=== PATIENT | male | born 1955 | race Caucasian/White ===

== ENCOUNTER → 2018-10-11 | Outpatient (CLI) | payer MEDICARE, MEDICAID ==
[~2018-10-11] MED LIST: ACE3 PO; ALBU8.5H IH; ALBU8.5H12 IH; ASCO-191 PO; ASPI-1471 PO; ASPI81TA86 PO; BIOT250012 PO; BUDE10.2 INH; BUDE10.25 IH; CALC-1 PO; CELE-1 PO; CHOL200022 PO; DULO30CA35 PO; DULO60CA56 PO; ERYT-109 PO; ESOM40CA42 PO; FAMO20TA28 PO; GAB800PT PO; GABA-1 PO; GABA-490 PO; GABA-507 PO; GABA-549 PO; GUAI400T18 PO; HYDR-385 PO; LACT1CAP6 PO; MELO-205 PO; MELO7.5O3 PO; MILK500C2 PO; MULT1TAB64 PO; NAPR-1043 PO; NAPR220C12 PO; NIAC500T85 PO; OMEG1CAP93 PO; POTA2TAB29 PO; SIME180C40 PO; TRAM-420 PO; TRAM100T8 PO; VITA-175 PO; VITA-197 PO
[2018-10-11 10:27] LABS: PLATELET COUNT, AUTOMATED 221 K/uL (150-450)
[2018-10-11 11:07] LABS: LDL CHOLESTEROL 117 mg/dl
== END ==
LOC: LAB 10:08
PROVIDERS: ATTEND Internal Medicine
DX: J44.9 Chronic obstructive pulmonary disease, unspecified (principal); I10 Essential (primary) hypertension; Z72.0 Tobacco use
CPT/HCPCS: 36415; 81001; 84443; 85025; G0103; 82040; 82247; 82310; 82374; 82435; 82465; 82565; 82947; 83718; 84075; 84132; 84153; 84155; 84295; 84450; 84460; 84478; 84520

== ENCOUNTER 2018-10-27 16:08 | Emergency (ER) | payer MEDICARE, MEDICAID ==
[~2018-10-27 16:08] MED LIST changes: +FLU60SYR36 IM; +FLUT16SP19 NS; -GABA-507 PO; +GABA-535 PO; +GABA-547 PO; +LISI-362 PO
--- NOTE | 2018-10-27 16:12 | ER Report ---
History and Physical Time Seen By MD: 16:11 HPI/ROS CHIEF COMPLAINT: Mid epigastric abdominal pain, nausea, decreased appetite HISTORY OF PRESENT ILLNESS: Patient is a 63-year-old male here with complaints of midepigastric abdominal pain, nausea, decreased appetite 24 hours. Patient denies fevers, chest pain, shortness breath, vomiting, recent illnesses. Abdomen is nondistended with no rebound or guarding at time of evaluation, vital signs stable, patient afebrile REVIEW OF SYSTEMS: Constitutional: No fever, no chills. Eyes: No discharge. ENT: No sore throat. Cardiovascular: No chest pain, no palpitations. Respiratory: No cough, no shortness of breath. Gastrointestinal: + mid epigastric abdominal pain, no vomiting, + nausea, No viridiana ound or guarding Genitourinary: No hematuria. Musculoskeletal: No back pain. Skin: No rashes. Neurological: No headache. Allergies: Coded Allergies: No Known Drug Allergies (Unverified , 01/19/16) Home Meds Active Scripts Metronidazole (METRONIDAZOLE) 500 Mg Tablet, 500 MG PO TID for 7 Days, #21 TAB Prov:BROOKLNY STANFORD DO 10/27/18 Ciprofloxacin Hcl 500 Mg Tab (CIPRO 500 MG TAB) 500 Mg Tablet, 500 MG PO BID for 7 Days, #14 TAB Prov:BROOKLYN STANFORD DO 10/27/18 Ondansetron 4 Mg Odt (ONDANSETRON 4 MG ODT) 4 Mg Tab.rapdis, 4 MG PO ONCE, #20 TAB Prov:BROOKLYN STANFORD DO 10/27/18 Fluticasone Prop 50 Mcg Ns (FLONASE 50 MCG NS) 16 Gm [place].susp, 1 SPRAY NS QDAY, #1 BOT 1 Refill Prov:MEEK VALVERDE MD 10/22/18 Lisinopril (LISINOPRIL) 10 Mg Tablet, 10 MG PO QDAY, #30 TAB 2 Refills Prov:MEEK VALVERDE MD 10/22/18 Gabapentin (GABAPENTIN) 100 Mg Capsule, 100 MG PO TID PRN for pain, #30 CAPSULE Prov:MEEK VALVERDE MD 10/22/18 Budesonide/Formoterol Fumarate (SYMBICORT 80-4.5 MCG INHALER) 10.2 Gm Hfa.aer.ad, 2 PUFF IH BID, #1 INHALER 2 Refills Prov:MEEK VALVERDE MD 10/11/18 Albuterol Sulfate 90 Mcg/Act (PROAIR HFA 90 MCG/ACT) 8.5 Gm Hfa.aer.ad, 2 PUFF IH Q4-6H PRN for DYSPNEA, #1 INHALER 3 Refills Prov:MEEK VALVERDE MD 10/11/18 Reported Medications Aspirin (ASPIR 81) 81 Mg Tablet., 81 MG PO QDAY, TAB 05/31/15 Discontinued Scripts Duloxetine Hcl (CYMBALTA) 30 Mg Capsule., 30 MG PO QDAY, #30 CAP Prov:MEEK VALVERDE MD 10/11/18 Hx Smoking: Yes Smoking Status: Current: Every Day Smoker Hx Substance Use Disorder: Yes Hx Alcohol Use: Yes (RECOVERING ALCOHOLIC) Constitutional Vital Sign - Last 24 Hours 10/27/18 10/27/18 10/27/18 10/27/18 16:13 16:14 16:23 16:30 Temp 97.8 Pulse 95 94 Resp 20 22 B/P (MAP) 160/106 160/106 (124) 130/88 (102) Pulse Ox 91 89 O2 Delivery Room Air 10/27/18 10/27/18 10/27/18 10/27/18 16:38 16:53 17:00 17:08 Pulse 90 87 89 Resp 27 21 16 B/P (MAP) ???/??? (1665) Pulse Ox 87 92 97 10/27/18 10/27/18 10/27/18 10/27/18 17:19 17:23 17:30 17:38 Pulse 88 90 Resp 17 14 B/P (MAP) 120/91 (101) Pulse Ox 96 92 O2 Flow Rate 2.0 10/27/18 10/27/18 10/27/18 10/27/18 17:53 17:58 18:00 18:13 Pulse 83 ??? 85 Resp 11 21 B/P (MAP) ???/??? (1665) Pulse Ox 94 98 10/27/18 10/27/18 10/27/18 10/27/18 18:28 18:30 18:43 18:58 Pulse 85 87 91 Resp 10 22 20 B/P (MAP) 139/96 (110) Pulse Ox 94 94 93 10/27/18 10/27/18 19:00 19:13 Pulse ??? B/P (MAP) 135/97 (110) Physical Exam General Appearance: The patient is alert, has no immediate need for airway protection and no signs of toxicity. NAD Eyes: Pupils equal and round no pallor or injection. ENT, Mouth: Mucous membranes are moist. Respiratory: There are no retractions, lungs are clear to auscultation. Cardiovascular: Regular rate and rhythm. Gastrointestinal: + mid epigastric tenderness Neurological: No focal neuro deficits Skin: Warm and dry, no rashes. Musculoskeletal: Neck is supple non tender. Extremities are nontender, nonswollen and have full range of motion. DIFFERENTIAL DIAGNOSIS: After history and physical exam differential diagnosis was considered for abdominal pain including but not limited to appendicitis, cholecystitis, gastritis and urinary tract infection. Medical Decision Making Data Points Result Diagram: 10/27/18 1615 10/27/18 1615 Laboratory Hematology Test 10/27/18 16:15 Red Blood Count 5.66 M/uL (4.00-5.60) Mean Corpuscular Volume 97.8 fL (80.0-96.0) Mean Corpuscular Hemoglobin 32.1 pg (26.0-33.0) Mean Corpuscular Hemoglobin Concent 32.8 g/dL (32.0-36.0) Red Cell Distribution Width 13.6 % (11.5-14.5) Mean Platelet Volume 8.5 fL (7.2-11.1) Neutrophils (%) (Auto) % (39.4-72.5) Lymphocytes (%) (Auto) % (17.6-49.6) Monocytes (%) (Auto) % (4.1-12.4) Eosinophils (%) (Auto) % (0.4-6.7) Basophils (%) (Auto) % (0.3-1.4) Nucleated RBC Relative Count (auto) /100WBC Neutrophils # (Auto) K/uL (2.0-7.4) Lymphocytes # (Auto) K/uL (1.3-3.6) Monocytes # (Auto) K/uL (0.3-1.0) Eosinophils # (Auto) K/uL (0.0-0.5) Basophils # (Auto) K/uL (0.0-0.1) Nucleated RBC Absolute Count (auto) K/uL Neutrophils % (Manual) 58 % (39.4-72.5) Lymphocytes % (Manual) 32 % (17.6-49.6) Monocytes % (Manual) 8 % (4.1-12.4) Eosinophils % (Manual) 2 % (0.4-6.7) Basophils % (Manual) 0 % (0.3-1.4) Platelet Estimate Normal Erythrocyte Sedimentation Rate 14 mm/HOUR (0-20) Sodium Level 141 mmol/L (137-145) Potassium Level 4.2 mmol/L (3.5-5.0) Chloride Level 102 mmol/L (98-107) Carbon Dioxide Level 32 mmol/L (22-30) Blood Urea Nitrogen 17 mg/dl (9-21) Creatinine 1.00 mg/dl (0.66-1.25) Glomerular Filtration Rate Calc > 60.0 Random Glucose 100 mg/dl (75-110) Calcium Level 9.6 mg/dl (8.4-10.2) Total Bilirubin 0.5 mg/dl (0.2-1.3) Aspartate Amino Transf (AST/SGOT) 23 U/L (0-35) Alanine Aminotransferase (ALT/SGPT) 24 U/L (0-56) Alkaline Phosphatase 79 U/L (0-126) Troponin I < 0.012 ng/ml C-Reactive Protein 0.6 mg/dl (<1.0) Total Protein 7.5 g/dl (6.3-8.2) Albumin 4.1 g/dl (3.5-5.0) Lipase 505 U/L (23-300) Chemistry Test 10/27/18 16:15 White Blood Count 11.1 k/uL (4.5-11.0) Red Blood Count 5.66 M/uL (4.00-5.60) Hemoglobin 18.1 g/dL (14.0-18.0) Hematocrit 55.3 % (42.0-52.0) Mean Corpuscular Volume 97.8 fL (80.0-96.0) Mean Corpuscular Hemoglobin 32.1 pg (26.0-33.0) Mean Corpuscular Hemoglobin Concent 32.8 g/dL (32.0-36.0) Red Cell Distribution Width 13.6 % (11.5-14.5) Platelet Count 186 K/uL (150-450) Mean Platelet Volume 8.5 fL (7.2-11.1) Neutrophils (%) (Auto) % (39.4-72.5) Lymphocytes (%) (Auto) % (17.6-49.6) Monocytes (%) (Auto) % (4.1-12.4) Eosinophils (%) (Auto) % (0.4-6.7) Basophils (%) (Auto) % (0.3-1.4) Nucleated RBC Relative Count (auto) /100WBC Neutrophils # (Auto) K/uL (2.0-7.4) Lymphocytes # (Auto) K/uL (1.3-3.6) Monocytes # (Auto) K/uL (0.3-1.0) Eosinophils # (Auto) K/uL (0.0-0.5) Basophils # (Auto) K/uL (0.0-0.1) Nucleated RBC Absolute Count (auto) K/uL Neutrophils % (Manual) 58 % (39.4-72.5) Lymphocytes % (Manual) 32 % (17.6-49.6) Monocytes % (Manual) 8 % (4.1-12.4) Eosinophils % (Manual) 2 % (0.4-6.7) Basophils % (Manual) 0 % (0.3-1.4) Platelet Estimate Normal Erythrocyte Sedimentation Rate 14 mm/HOUR (0-20) Glomerular Filtration Rate Calc > 60.0 Calcium Level 9.6 mg/dl (8.4-10.2) Total Bilirubin 0.5 mg/dl (0.2-1.3) Aspartate Amino Transf (AST/SGOT) 23 U/L (0-35) Alanine Aminotransferase (ALT/SGPT) 24 U/L (0-56) Alkaline Phosphatase 79 U/L (0-126) Troponin I < 0.012 ng/ml C-Reactive Protein 0.6 mg/dl (<1.0) Total Protein 7.5 g/dl (6.3-8.2) Albumin 4.1 g/dl (3.5-5.0) Lipase 505 U/L (23-300) EKG/Imaging EKG Interpretation Test Reason : CARDIAC Blood Pressure : / mmHG Vent. Rate : 096 BPM Atrial Rate : 096 BPM P-R Int : 154 ms QRS Dur : 096 ms QT Int : 342 ms P-R-T Axes : 063 014 046 degrees QTc Int : 432 ms Normal sinus rhythm Normal ECG When compared with ECG of 22-DEC-2015 09:15, premature ventricular complexes are no longer present Confirmed by Jude Chowdary ([id number]) on 10/27/2018 9:04:05 PM Referred By: Confirmed By:Jude Porter Imaging Location: [facility] - [place] Patient: Ferny Henderson : 1955 Visit/Account:[id number] Date of Sevice: 10/27/2018 2 VIEWS CHEST INDICATION: Chest pain. COMPARISON: 08/04/2015. FINDINGS: Cardiomediastinal silhouette and pulmonary vessels within normal limits. There is no focal infiltrate or lobar consolidation. There is no pneumothorax or pleural effusion. No nodule. Upper abdomen is unremarkable. No acute bony abnormality. IMPRESSION: 1. No acute cardiopulmonary process. EXAMINATION: CT abdomen with IV contrast CT pelvis with IV contrast HISTORY: Pancreatitis. COMPARISON: None. TECHNIQUE: Axial images were taken through the abdomen and pelvis with intravenous contrast. Sagittal and coronal reformatted images are also submitted. CONTRAST: 75 mL of IV Isovue-370 One of the following dose optimization techniques was utilized in the performance of this exam: Automated exposure control; adjustment of the mA a nd/or kV according to the patient's size; or use of an iterative reconstruction technique. Specific details can be referenced in the facility's radiology CT exam operational policy. FINDINGS: Liver/biliary: Negative. Pancreas: The pancreas is mildly atrophic. Spleen: Negative. Adrenal glands: Negative. Kidneys: A few small cysts in the kidneys. Pelvic structures: Negative. Bowel: Anastomotic clips at the rectosigmoid junction moderate colonic fecal content. The appendix appears normal. The duodenum and jejunum have relatively hyperenhancing mccall and there may be mild wall thickening of the duodenum and jejunum. The wall of the hepatic flexure of the colon also appears mildly thicke candace. Peritoneum/retroperitoneum/mesenteries: There is fluid/edema along the duodenum and jejunum and along the hepatic flexure of the colon small volume of free fluid in the pelvis. Mild retroperitoneal edema on the right. Vessels: Moderate mixed plaque of the abdominal aorta and iliac arteries Musculoskeletal/body wall: Small fat-containing umbilical hernia. Advanced disc degenerative changes throughout the lumbar spine and lower thoracic spine. Lymph node assessment: Negative. Lower chest: Negative. IMPRESSION: There appears to be mild wall thickening and relative hyperenhancement of the duodenum and long segment of the jejunum. There is edema/fluid along the segments of thickened appearing bowel. These findings are most suggestive of an enteritis. There also appears to be mild wall thickening of the hepatic flexure of the colon suggesting inflammation of the colon in this region. The pancreas is mildly atrophic. The nearby inflammatory changes appear to be related to the bowel rather than the pancreas. ED Course/Re-evaluation ED Course Patient is a 63-year-old male here with complaints of midepigastric abdominal pain, nausea, decreased appetite for the past 24 hours. Patient is afebrile, hemodynamically stable at time of evaluation. Chest x-ray was unremarkable, troponin was negative. EKG showed no ischemic changes or arrhythmias. Patient was tender on palpation of the midepigastrium. White blood cell count was 11,000. Lipase came back elevated prompting CT imaging of the abdomen and pelvis which was consistent with enteritis of the duodenum and jejunum. Patient was given GI cocktail, Zofran with significant improvement in symptoms. Due to the patient's consolation of symptoms and imaging findings, patient was placed on Ci pro and Flagyl and advised to follow-up with gastroenterology or surgery for endoscopy within the next 24-48 hours. I updated the patient regarding these findings. Return precautions provided. Decision to Disposition Date: Oct 27, 2018 Decision to Disposition Time: 18:52 Depart Departure Latest Vital Signs Vital Signs Date Time Temp Pulse Resp B/P (MAP) Pulse Ox O2 Delivery O2 Flow Rate FiO2 10/27/18 19:13 ??? 10/27/18 19:00 135/97 (110) 10/27/18 18:58 20 93 10/27/18 17:19 2.0 10/27/18 16:13 97.8 Room Air Impression: Primary Impression: Pancreatitis Additional Impression: Nausea Condition: Improved Disposition: HOME OR SELF-CARE Referrals: MEEK VALVERDE MD (PCP) New Scripts Metronidazole (METRONIDAZOLE) 500 Mg Tablet 500 MG PO TID for 7 Days, #21 TAB Prov: BROOKLYN STANFORD DO 10/27/18 Ciprofloxacin Hcl 500 Mg Tab (CIPRO 500 MG TAB) 500 Mg Tablet 500 MG PO BID for 7 Days, #14 TAB Prov: BROOKLYN STANFORD DO 10/27/18 Ondansetron 4 Mg Odt (ONDANSETRON 4 MG ODT) 4 Mg Tab.rapdis 4 MG PO ONCE, #20 TAB Prov: STANFORDBROOKLYN DO 10/27/18 Patient Instructions: Enteritis (ED), Pancreatitis (ED) Additional Instructions: Please drink plenty of water. You may take 1 Zofran every 4-6 hours as needed for nausea and vomiting. Your CT scan found that you have inflammation of the hawk wel, possible enteritis for which she'll need to take Cipro 500 mg twice daily, Flagyl 500 mg 3 times daily for 7 days. You will need to follow-up with either Dr. Carbone or Dr. Bingham in order to have endoscopy visualization of the bowel. Please return promptly if you develop fevers, worsening abdominal pain, inability to keep down food or fluids. Please avoid spicy foods, gastric irritants. Problem Qualifiers NICO STANFORDLAS Mayelin ARROYO Oct 27, 2018 16:12
[2018-10-27] MEDS ORDERED: MAG HYD/AL HYD/SIMETH 30ML UDC PO ONE (16:25)
[2018-10-27] MEDS ORDERED: ONDANSETRON 4 MG/2 ML VIAL IVP ONE (16:25)
[2018-10-27] MEDS ORDERED: LIDOCAINE 2% VISC SLN 15ML UDC PO ONE (16:25)
[2018-10-27 16:59] LABS: PLATELET COUNT, AUTOMATED 186 K/uL (150-450)
--- NOTE | 2018-10-27 17:14 | RADIOLOGY IMAGING REPORT ---
FACILITY: [facility] PATIENT NAME: Ferny Henderson : 1955 MR: [id number] V: [id number] EXAM DATE: ORDERING PHYSICIAN: BROOKLYN STANFORD TECHNOLOGIST: Location: [facility] Patient: Ferny Henderson : 1955 Visit/Account:[id number] Date of Sevice: 10/27/2018 2 VIEWS CHEST INDICATION: Chest pain. COMPARISON: 08/04/2015. FINDINGS: Cardiomediastinal silhouette and pulmonary vessels within normal limits. There is no focal infiltrate or lobar consolidation. There is no pneumothorax or pleural effusion. No nodule. Upper abdomen is unremarkable. No acute bony abnormality. IMPRESSION: 1. No acute cardiopulmonary process. Report Dictated By: Rafy Levy at 10/27/2018 5:08 PM Report E-Signed By: Rafy Levy at 10/27/2018 5:09 PM WSN:[id number]
--- NOTE | 2018-10-27 17:51 | EKG ---
[place] [facility] [place] GASPER WASHBURN : [id number] MR: [id number] V: [id number] EXAM DATE: ORDERING PHYSICIAN: BROOKLYN STANFORD TECHNOLOGIST: MADHU Alfonso Reason : CARDIAC Blood Pressure : / mmHG Vent. Rate : 096 BPM Atrial Rate : 096 BPM P-R Int : 154 ms QRS Dur : 096 ms QT Int : 342 ms P-R-T Axes : 063 014 046 degrees QTc Int : 432 ms Normal sinus rhythm Normal ECG When compared with ECG of 22-DEC-2015 09:15, premature ventricular complexes are no longer present Confirmed by Jude Chowdary ([id number]) on 10/27/2018 9:04:05 PM Referred By: Confirmed By:Jude Porter
[2018-10-27] MEDS ORDERED: IOPAMIDOL 76% 100 ML INFUS BTL 100 ML ONE (18:08)
--- NOTE | 2018-10-27 18:43 | RADIOLOGY IMAGING REPORT ---
[place] [facility] [place] NAME: Ferny Henderson : 1955 MR: [id number] V: [id number] EXAM DATE: ORDERING PHYSICIAN: BROOKLYN STANFORD TECHNOLOGIST: [place] [facility] [place] Patient: Ferny Henderson : 1955 Visit/Account:[id number] Date of Sevice: 10/27/2018 EXAMINATION: CT abdomen with IV contrast CT pelvis with IV contrast HISTORY: Pancreatitis. COMPARISON: None. TECHNIQUE: Axial images were taken through the abdomen and pelvis with intravenous contrast. Sagitt al and coronal reformatted images are also submitted. CONTRAST: 75 mL of IV Isovue-370 One of the following dose optimization techniques was utilized in the performance of this exam: Autom ated exposure control; adjustment of the mA and/or kV according to the patient's size; or use of an i terative reconstruction technique. Specific details can be referenced in the facility's radiology C T exam operational policy. FINDINGS: Liver/biliary: Negative. Pancreas: The pancreas is mildly atrophic. Spleen: Negative. Adrenal glands: Negative. Kidneys: A few small cysts in the kidneys. Pelvic structures: Negative. Bowel: Anastomotic clips at the rectosigmoid junction moderate colonic fecal content. The appendix ap pears normal. The duodenum and jejunum have relatively hyperenhancing mccall and there may be mild wal l thickening of the duodenum and jejunum. The wall of the hepatic flexure of the colon also appears m ildly thickened. Peritoneum/retroperitoneum/mesenteries: There is fluid/edema along the duodenum and jejunum and along the hepatic flexure of the colon small volume of free fluid in the pelvis. Mild retroperitoneal jonathan a on the right. Vessels: Moderate mixed plaque of the abdominal aorta and iliac arteries Musculoskeletal/body wall: Small fat-containing umbilical hernia. Advanced disc degenerative changes throughout the lumbar spine and lower thoracic spine. Lymph node assessment: Negative. Lower chest: Negative. IMPRESSION: There appears to be mild wall thickening and relative hyperenhancement of the duodenum and long segme nt of the jejunum. There is edema/fluid along the segments of thickened appearing bowel. These findin gs are most suggestive of an enteritis. There also appears to be mild wall thickening of the hepatic flexure of the colon suggesting inflammation of the colon in this region. The pancreas is mildly atrophic. The nearby inflammatory changes appear to be related to the bowel ra ther than the pancreas. Report Dictated By: Castro Guerra MD at 10/27/2018 6:21 PM Report E-Signed By: Castro Guerra MD at 10/27/2018 6:39 PM WSN:[id number]
[2018-10-27] MEDS ORDERED: METR500T15 PO (18:50)
[2018-10-27] MEDS ORDERED: ONDA4TAB9 PO (18:50)
[2018-10-27] MEDS ORDERED: CIPR-344 PO (18:50)
[2018-10-27] MEDS ORDERED: CIPROFLOXACIN 500 MG TAB PO ONE (18:55)
[2018-10-27] MEDS ORDERED: METRONIDAZOLE 500 MG TABLET PO ONE (18:55)
[2018-10-27 19:00] VITALS: BP 135/97
== END 2018-10-27 19:28 | disposition home or self-care (01) ==
LOC: ER 16:27
DX: K85.90 Acute pancreatitis without necrosis or infection, unspecified (principal); R11.0 Nausea
CPT/HCPCS: 71046; 74177; 83690; 84484; 85025; 85651; 86140; 96374; 99285; A9270; J2405; Q9967; 82040; 82247; 82310; 82374; 82435; 82565; 82947; 84075; 84132; 84155; 84295; 84450; 84460; 84520

== ENCOUNTER 2018-10-29 01:29 | Emergency (ER) | payer MEDICARE, MEDICAID ==
[~2018-10-29 01:29] MED LIST changes: +CIPR-344 PO; +METR500T15 PO; +ONDA4TAB9 PO
--- NOTE | 2018-10-29 01:32 | ER Report ---
History and Physical Time Seen By MD: 01:32 HPI/ROS CHIEF COMPLAINT: Tongue swelling HISTORY OF PRESENT ILLNESS: 63-year-old male presents ambulatory to the ER complaining of tongue swelling. Patient was recently started on lisinopril. 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 Patient states the tongue swelling is very similar to his previous episode of when he was 1st poisoned when he was in correction REVIEW OF SYSTEMS: Respiratory: No cough, no dyspnea. Cardiovascular: No chest pain, no palpitations. Gastrointestinal: No vomiting, no abdominal pain. Musculoskeletal: No back pain. Allergies: Coded Allergies: lisinopril (Verified Allergy, Intermediate, ANGIOEDEMA, 10/29/18) Home Meds Active Scripts Prednisone 10 Mg Tab (PREDNISONE 10 MG TAB) 10 Mg Tablet, 10 MG PO QDAY for reduce tongue swelling, #6 TAB 2 by mouth daily 2 days then 1 by mouth daily for 2 days Prov:AGATHA MELGAR DO 10/29/18 Metronidazole (METRONIDAZOLE) 500 Mg Tablet, 500 MG PO TID for 7 Days, #21 TAB Prov:BROOKLYN STANFORD DO 10/27/18 Ciprofloxacin Hcl 500 Mg Tab (CIPRO 500 MG TAB) 500 Mg Tablet, 500 MG PO BID for 7 Days, #14 TAB Prov:BROOKLYN STANFORD DO 10/27/18 Ondansetron 4 Mg Odt (ONDANSETRON 4 MG ODT) 4 Mg Tab.rapdis, 4 MG PO ONCE, #20 TAB Prov:BROOKLYN STANFORD DO 10/27/18 Fluticasone Prop 50 Mcg Ns (FLONASE 50 MCG NS) 16 Gm [place].susp, 1 SPRAY NS QDAY, #1 BOT 1 Refill Prov:MEEK VALVERDE MD 10/22/18 Lisinopril (LISINOPRIL) 10 Mg Tablet, 10 MG PO QDAY, #30 TAB 2 Refills Prov:MEEK VALVERDE MD 10/22/18 Gabapentin (GABAPENTIN) 100 Mg Capsule, 100 MG PO TID PRN for pain, #30 CAPSULE Prov:MEEK VALVERDE MD 10/22/18 Budesonide/Formoterol Fumarate (SYMBICORT 80-4.5 MCG INHALER) 10.2 Gm Hfa.aer.ad, 2 PUFF IH BID, #1 INHALER 2 Refills Prov:MEEK VALVERDE MD 10/11/18 Albuterol Sulfate 90 Mcg/Act (PROAIR HFA 90 MCG/ACT) 8.5 Gm Hfa.aer.ad, 2 PUFF IH Q4-6H PRN for DYSPNEA, #1 INHALER 3 Refills Prov:MEEK VALVERDE MD 10/11/18 Reported Medications Aspirin (ASPIR 81) 81 Mg Tablet.dr, 81 MG PO QDAY, TAB 05/31/15 Past Medical/Surgical History Past Medical History Cardiovascular: Reports hx of: hypertension Respiratory: Reports hx of: COPD sleep apnea Gastrointestinal: Reports hx of: Crohn's disease diverticulitis GERD irritable bowel syndrome Musculoskeletal: Reports hx of: back pain neck pain Psychiatric: Reports hx of: anxiety depression Hematology/oncology (M): Denies hx of: prostate cancer Past Surgical History Gastrointestinal: Reports hx of: colectomy (for diverticulitis) other GI surgery (pilonidal cyst) Genitourinary - Male: Reports hx of: other surgery (bladder surgery) Musculoskeletal: Reports hx of: spinal surgery (lumbosacral spine surgery x2 1990s than 2004) Integumentary: Reports hx of: skin cancer removal (shoulders 1968) Reviewed Nurses Notes: Yes Old Medical Records Reviewed: Yes Hx Smoking: Yes Smoking Status: Current: Every Day Smoker Hx Substance Use Disorder: Yes (not recent) Hx Alcohol Use: Yes (RECOVERING ALCOHOLIC) Constitutional Physical Exam General Appearance: The patient is alert, has no immediate need for airway protection and no current signs of toxicity. Vital signs stable, afebrile, pulse ox normal HEENT: Pupils equal and round no injection. TMs normal, oropharynx without redness or exudate. There is enlargement of the left side of the tongue consistent with angioedema Respiratory: Chest is non tender, lungs are clear to auscultation. No wheezing or rails Cardiac: regular rate and rhythm Gastrointestinal: Abdomen is soft and non tender, no masses, bowel sounds normal. Musculoskeletal: Neck: Neck is supple and non tender. Extremities have full range of motion and are non tender. Skin: No rashes or lesions. DIFFERENTIAL DIAGNOSIS: After history and physical exam differential diagnosis was considered for angioedema, allergic reaction, Medical Decision Making ED Course/Re-evaluation Clinical Indication for ER IV: Hydration, IV Access ED Course Patient was admitted to an examination room. H&P was done. The differential diagnoses was considered. Patient with obvious tongue swelling consistent with angioedema. Patient has recently been started on lisinopril. Patient's advised to discontinue the lisinopril. Patient's given steroids, Benadryl, Pepcid and monitored for several hours. He continues to slowly improved. He is discharged home. He is advised to return for any worsening. Patient's advised to follow- up with Dr. Valverde for other medication for his blood pressure. Re-evaluation 10/29/2018 2:41:49 am patient thinks his tongue swelling is reduced. On cli nical examination. He does appear to be down by 25%. We'll continue to monitor for another hour and then likely discharge the patient if he is continuing to improve. 10/29/2018 3:28:22 am . Patient states he feels fine. His speech is clear. On evaluation. His tongue appears slightly larger than it did on last visualization. We'll continue to monitor the patient for any changes. 10/29/2018 4:31:33 am patient reports no change. On visualization his tongue. He does appear slightly smaller than when last visualized. Will proceed with discharge at home at this time on a prednisone taper and Benadryl. Patient's advised to have a low threshold to return for any worsening. Decision to Disposition Date: Oct 29, 2018 Decision to Disposition Time: 04:32 Depart Departure Latest Vital Signs Impression: Primary Impression: Tongue swelling Additional Impressions: Angioedema Enteritis Condition: Improved Disposition: HOME OR SELF-CARE Referrals: MEEK VALVERDE MD (PCP) New Scripts Prednisone 10 Mg Tab (PREDNISONE 10 MG TAB) 10 Mg Tablet 10 MG PO QDAY for reduce tongue swelling, #6 TAB 2 by mouth daily 2 days then 1 by mouth daily for 2 days Prov: AGATHA MELGAR DO 10/29/18 Patient Instructions: Angioedema (ED) Additional Instructions: Do not take anymore Lisinopril. Please listed as an allergy in the future when asked regarding medication allergies Take Benadryl 25 mg 2-3 times per day as needed for hives or swelling Follow-up with your primary care doctor in 2-3 days for recheck of your blood pressure and resuming a blood pressure medication since you cannot take lisinopril any more Have a low threshold to call 911 for any worsening such as difficulty swallowing or breathing Problem Qualifiers Additional Impressions: Angioedema Encounter type: initial encounter Qualified Codes: T78.3XXA - Angioneurotic edema, initial encounter AGATHA MELGAR DO Oct 29, 2018 01:32
[2018-10-29] MEDS ORDERED: FAMOTIDINE(*) 20MG/50ML PREMIX 50 ML IVPB ONE (01:40)
[2018-10-29] MEDS ORDERED: diphenhydrAMINE 50 MG/ML VIAL IVP ONE (01:40)
[2018-10-29] MEDS ORDERED: methylPREDNIS SUCC 125 MG/2ML IVP ONE (01:40)
[2018-10-29 04:30] VITALS: BP 138/83
[2018-10-29] MEDS ORDERED: PRED-1 PO (04:34)
== END 2018-10-29 04:45 | disposition home or self-care (01) ==
LOC: ER 02:04
DX: T78.3XXA Angioneurotic edema, initial encounter (principal); K52.9 Noninfective gastroenteritis and colitis, unspecified
CPT/HCPCS: 96374; 96375; 99284; J1200; J2930; J3490

== ENCOUNTER → 2018-11-06 | Outpatient (CLI) | payer MEDICARE, MEDICAID ==
[~2018-11-06] MED LIST changes: +PRED-1 PO
--- NOTE | 2018-11-06 09:31 | RADIOLOGY IMAGING REPORT ---
FACILITY: [facility] - [place], [place] PATIENT NAME: Ferny Henderson : 1955 MR: [id number] V: [id number] EXAM DATE: ORDERING PHYSICIAN: MEEK VALVERDE TECHNOLOGIST: Location: [facility] Patient: Ferny Henderson : 1955 Visit/Account:[id number] Date of Sevice: 11/06/2018 THYROID HISTORY: Thyroid nodule COMPARISON: None. FINDINGS: SIZE: Normal. Right lobe: 4.8 x 2.3 x 1.8 cm Left lobe: 4.3 x 1.6 x 1.9 cm Isthmus: 2 mm PARENCHYMA: Homogeneous. NODULES: Right lobe: * In the mid right lobe there is a solid well-circumscribed predominantly isoechoic nodule measuring 2.3 x 1 x 2 cm Left lobe: * None discrete. Isthmus: * None discrete. VASCULARITY: Within normal limits. ADDITIONAL FINDINGS: None. IMPRESSION: There is a solitary 2.3 x 1 x 2 cm isoechoic nodule mid right lobe for which ultrasound-guided fine-n eedle aspiration is recommended REFERENCE: 2015 [place] [employer] Management Guidelines for Adult Patients with Thyroid Nodules and D ifferentiated Thyroid Cancer: The [place] [employer] Guidelines Task Force on Thyroid Nodul es and Differentiated Thyroid Cancer. SONOGRAPHIC PATTERNS: * Benign: Purely cystic nodules (no solid component); estimated risk of malignancy <1 percent; no bi opsy recommended. * Very Low Suspicion: Spongiform or partially cystic nodules without any of the sonographic features described in low, intermediate, or high suspicion patterns; estimated risk of malignancy <3 percent; consider FNA at > 2 cm (Observation without FNA is also a reasonable option). * Low Suspicion: Isoechoic or hyperechoic solid nodule, or partially cystic nodule with eccentric so lid areas, without microcalcification, irregular margin or ETE (extra-thyroidal extension), or taller than wide shape; estimated risk of malignancy 5-10 percent; recommend FNA at >1.5 cm. * Intermediate Suspicion: Hypoechoic solid nodule with smooth margins without microcalcifications, E TE (extra-thyroidal extension), or taller than wide shape; estimated risk of malignancy 10-20 percent ; recommend FNA at > 1 cm. * High Suspicion: Solid hypoechoic nodule or solid hypoechoic component of a partially cystic nodule with one or more of the following features: irregular margins (infiltrative, microlobulated), microc alcifications, taller than wide shape, rim calcifications with small extrusive soft tissue component, evidence of ETE (extra-thyroidal extension); estimated risk of malignancy >70-90 percent; recommend FNA at > 1 cm. NOTES: * Although a sonographically suspicious subcentimeter thyroid nodule without evidence of extrathyroi adriano extension or sonographically suspicious lymph nodes may be observed with close sonographic follow -up rather than pursuing immediate FNA, patient age and preference may modify decision-making. A > 50% interval increase in nodule volume and/or development of new suspicious sonographic features are felt to be a valid reasons for potential re-aspiration of a nodule previously shown to have benig n FNA cytology. Report Dictated By: Angelina Burgos MD at 11/06/2018 9:24 AM Report E-Signed By: Angelina Burgos MD at 11/06/2018 9:26 AM PAULAN:[email or web address]
== END ==
LOC: US 01:12
PROVIDERS: ATTEND Internal Medicine
DX: E04.1 Nontoxic single thyroid nodule (principal)
CPT/HCPCS: 76536

== ENCOUNTER → 2018-11-11 | Outpatient (CLI) | payer MEDICARE, MEDICAID ==
[~2018-11-11] MED LIST changes: +METO25TA23 PO
[2018-11-11 14:26] LABS: PLATELET COUNT, AUTOMATED 242 K/uL (150-450)
== END ==
LOC: LAB 14:01
PROVIDERS: ATTEND Internal Medicine
DX: J44.9 Chronic obstructive pulmonary disease, unspecified (principal); I10 Essential (primary) hypertension; K52.9 Noninfective gastroenteritis and colitis, unspecified; K85.90 Acute pancreatitis without necrosis or infection, unspecified; E04.1 Nontoxic single thyroid nodule
CPT/HCPCS: 36415; 82040; 82150; 82247; 82310; 82374; 82435; 82565; 82947; 83690; 84075; 84132; 84155; 84295; 84450; 84460; 84520; 85025

== ENCOUNTER → 2019-01-14 | Outpatient (CLI) | payer MEDICARE, MEDICAID ==
[~2019-01-14] MED LIST changes: +LOSA100T75 PO
[2019-01-14 08:23] LABS: INR 1.03
== END ==
LOC: US 01:03
PROVIDERS: ATTEND Internal Medicine
DX: Z01.818 Encounter for other preprocedural examination (principal); E04.1 Nontoxic single thyroid nodule
CPT/HCPCS: 36415; 85610

== ENCOUNTER → 2019-01-24 | Outpatient (CLI) | payer MEDICARE, MEDICAID ==
--- NOTE | 2019-01-24 14:44 | RADIOLOGY IMAGING REPORT ---
FACILITY: [facility] PATIENT NAME: Ferny Henderson : 1955 MR: [id number] V: [id number] EXAM DATE: ORDERING PHYSICIAN: MEEK VALVERDE TECHNOLOGIST: Location: [facility] - [place], [place] Patient: Ferny Henderson : 1955 Visit/Account:[id number] Date of Sevice: 01/24/2019 Exam type: US BIOPSY LOC/INJ THYROID History: Right-sided thyroid nodule Comparison: 2018. Findings: Informed consent was obtained including potential risks and complications. The right side of the pat ient's neck was prepped and draped usual sterile fashion. Local anesthesia was accomplished with 1% lidocaine. Under direct and continuous sonographic guidance four 25-gauge FNA biopsies were obtained through the dominant right thyroid nodule. The samples were given to the certified cytotechnologist for processing. The procedure was accomplished without apparent complication. IMPRESSION: 1. Successful sonographically guided right-sided thyroid biopsy Report Dictated By: Angelina Burgos MD at 01/24/2019 2:37 PM Report E-Signed By: Angelina Burgos MD at 01/24/2019 2:38 PM WSN:[email or web address]
== END ==
LOC: US 02:17
PROVIDERS: ATTEND Internal Medicine
DX: E04.1 Nontoxic single thyroid nodule (principal)
CPT/HCPCS: 10005; 76942; 88104; 88172